=== PATIENT | female | born 1995 | race Two or more races ===

== ENCOUNTER 2025-01-26 13:05 | Emergency (ER) | payer BC ==
[~2025-01-26] VITALS: Ht 170.2 cm; Wt 88.0 kg
[2025-01-26 13:12] VITALS: O2SAT 98
[2025-01-26] MEDS ORDERED: ACET-2708 MT (13:41)
[2025-01-26 13:54] VITALS: BP 128/70; PULSE 89; RESP 16; TEMP 36.7; O2SAT 99
== END 2025-01-26 14:23 | disposition home or self-care (01) ==
LOC: ER 13:05
DX: S86.112A Strain of other muscle(s) and tendon(s) of posterior muscle group at lower leg level, left leg, initial encounter (principal); J45.909 Unspecified asthma, uncomplicated; Z88.2 Allergy status to sulfonamides; X58.XXXA Exposure to other specified factors, initial encounter; Y93.89 Activity, other specified; Y92.89 Other specified places as the place of occurrence of the external cause; Y99.8 Other external cause status
CPT/HCPCS: 99283; 73590; A6449